=== PATIENT | female | born 1995 | race Caucasian/White ===

== ENCOUNTER 2020-04-24 17:16 | Inpatient (IN) | payer OTHER, BC ==
[2020-04-24] MEDS ORDERED: Ampicillin 2 GM in Sodium Chloride 0.9% 100 ML IV ONE (18:00)
[2020-04-24] MEDS ORDERED: Sodium Chloride 0.9% 10 ML Syringe FLUSH PRN (18:00)
[2020-04-24] MEDS ORDERED: Lactated Ringers 1,000 ML IV SCH (18:00)
[2020-04-24] MEDS ORDERED: Ondansetron 4 MG/2 ML SDV IVPUSH PRN (18:00)
[2020-04-24] MEDS ORDERED: Oxytocin/Lactated Ringers 10 UNIT/1,000 ML BAG IV SCH (18:00)
--- NOTE | 2020-04-24 18:03 | PCM.LDHP ---
L&D History of Present Illness - General Date of Service: 04/24/20 Admit Problem/Dx: Patient Status Order with Admit Dx/Problem 04/24/20 18:00 Patient Status [ADT] Routine Admission Diagnosis/Problem Admission Diagnosis/Problem Normal in third trimester Source of Information: Patient History Limitations: Reports: No Limitations - History of Present Illness Introduction:: Patient is a 24 y/o at 40 0/7 wks who presents in labor. Contractions started around 1100 this AM. Have been getting stronger and longer throughout the day. No LOF yet. Good FM - Related Data Allergies/Adverse Reactions: Allergies Allergy/AdvReac Type Severity Reaction Status Date / Time No Known Allergies Allergy Verified 04/24/20 18:03 Home Medications: Home Meds Levothyroxine [Synthroid] 50 mcg PO ACBREAKFAST 04/24/20 [History] Mv-Mn/Iron/FA/Herbal/Digestive [ One Tablet] 1 tab PO DAILY 04/24/20 [History] Past Medical History [employer] History: Reports: : 1 Para: 0 LMP (Approximate): Endocrine/Metabolic History: Reports: Hypothyroidism - Past Surgical History HEENT Surgical History: Reports: Oral Surgery Social & Family History - Tobacco Use Smoking Status *Q: Never Smoker - Alcohol Use Alcohol Use History: No - Recreational Drug Use Recreational Drug Use: No H&P Review of Systems - Review of Systems: Review Of Systems: See Below General: Reports: No Symptoms Pulmonary: Reports: No Symptoms Cardiovascular: Reports: No Symptoms Gastrointestinal: Reports: Abdominal Pain (contractions) Genitourinary: Reports: No Symptoms Musculoskeletal: Reports: No Symptoms Psychiatric: Reports: No Symptoms Neurological: Reports: No Symptoms L&D Exam - Exam Exam: See Below - OB Specific Contraction Intensity: Moderate Movement: Active Heart Tones: Present Heart Tones per Min: 135 Heart Rate (FHR) Variability: Moderate (6-25 bmp) Presentation: Vertex - Gomes Score Gomes Score Cervix Position: Anterior Gomes Score Consistency: Soft Gomes Score Effacement: 51-70% Gomes Score Dilation: 3-4 cm Gomes Score Infant's Station: -1 ,0 Gomes Score Total: 10 - Exam General: Alert, Oriented, Cooperative Lungs: Clear to Auscultation, Normal Respiratory Effort Cardiovascular: Regular Rate, Regular Rhythm GI/Abdominal Exam: Soft, Non-Tender Genitourinary: Normal external exam Extremities: Normal Inspection Skin: Warm, Dry, Intact - Patient Data Result Diagrams: 04/24/20 18:20 - Problem List (1) 40 weeks gestation of SNOMED Code(s): 33728128 ICD Code: Z3A.40 - 40 WEEKS GESTATION OF Status: Acute Current Visit: Yes (2) GBS (group B Streptococcus carrier), +RV culture, currently SNOMED Code(s): 5516501003830, 733876415, 5981356113541 ICD Code: O99.820 - STREPTOCOCCUS B CARRIER STATE COMPLICATING Status: Acute Current Visit: Yes (3) Rubella non-immune status, antepartum SNOMED Code(s): 866938525 ICD Code: O99.89 - OTH DISEASES AND CONDITIONS COMPL PREG/CHLDBRTH; Z28.3 - UNDERIMMUNIZATION STATUS Status: Acute Current Visit: Yes Problem List Initiated/Reviewed/Updated: Yes Orders Last 24hrs: Active Orders 24 hr Category Date Time Status Patient Status [ADT] Routine ADT 04/24/20 18:00 Ordered Activity as Tolerated [RC] PFP Care 04/24/20 18:00 Ordered Communication Order [RC] ASDIRECTED Care 04/24/20 18:00 Ordered Heart Tones [RC] ASDIRECTED Care 04/24/20 18:00 Ordered Non Stress Test [RC] PER UNIT ROUTINE Care 04/24/20 18:00 Ordered Notify Provider [RC] PFP Care 04/24/20 18:00 Ordered Notify Provider [RC] PRN Care 04/24/20 18:00 Ordered Peripheral IV Care [RC] . DIRECTED Care 04/24/20 18:00 Ordered Vital Signs [RC] PER UNIT ROUTINE Care 04/24/20 18:00 Ordered Regular Diet [DIET] Diet 04/24/20 Dinner Ordered CBC W/O DIFF,HEMOGRAM [HEME] Routine Lab 04/24/20 18:00 Ordered CORONAVIRUS COVID-19 DEJA [MOLEC] Stat Lab 04/24/20 18:02 Ordered RAPID PLASMA REAGIN,RPR [CHEM] Routine Lab 04/24/20 18:00 Ordered TYPE AND SCREEN [BBK] Routine Lab 04/24/20 18:00 Ordered Ampicillin 1 gm Med 04/24/20 18:00 Ordered Sodium Chloride 0.9% [Normal Saline] 100 ml IV Q4H Ampicillin 2 gm Med 04/24/20 18:00 Ordered Sodium Chloride 0.9% [Normal Saline] 100 ml IV ONETIME Lactated Ringers [Ringers, Lactated] 1,000 ml Med 04/24/20 18:00 Ordered IV ASDIRECTED Nalbuphine [Nubain] Med 04/24/20 18:00 Ordered 10 mg IVPUSH Q2H PRN Ondansetron [Zofran] Med 04/24/20 18:00 Ordered 4 mg IVPUSH Q4H PRN Oxytocin/Lactated Ringers [Pitocin in LR 10 Units/1,000 Med 04/24/20 18:00 Ordered ML] 10 unit in 1,000 ml IV .CONTINUOUS Sodium Chloride 0.9% [Saline Flush] Med 04/24/20 18:00 Ordered 10 ml FLUSH ASDIRECTED PRN Electronic Heart Tones Ext w TOCO [WOMSER] Ot 04/24/20 18:00 Ordered Routine Electronic Heart Tones Internal [WOMSER] Per Unit Ot 04/24/20 18:00 Ordered Routine Peripheral IV Insertion Adult [OM.PC] Routine Oth 04/24/20 18:00 Ordered Resuscitation Status Routine Resus Stat 04/24/20 18:00 Ordered Assessment/Plan Comment:: * Labs done * On Ampicillin for GBS positive status * Pain management per patient preference * Anticipate
[2020-04-24] MEDS: Ampicillin 1 GM in Sodium Chloride 0.9% 100 ML IV SCH (22:09)
[2020-04-24] MEDS: Nalbuphine 10 MG/ML Syringe IVPUSH PRN (22:13)
[2020-04-25] MEDS: Nalbuphine 10 MG/ML Syringe IVPUSH PRN (01:48)
[2020-04-25] MEDS: Ampicillin 1 GM in Sodium Chloride 0.9% 100 ML IV SCH (01:49)
[2020-04-25] MEDS ORDERED: Calcium Carbonate 500 MG Tab.Chew PO PRN (02:23)
[2020-04-25] MEDS ORDERED: Lidocaine 1% 50 ML MDV ONE (03:44)
[2020-04-25] MEDS ORDERED: Misoprostol 200 MCG Tab ONE (04:15)
[2020-04-25] MEDS ORDERED: Methylergonovine 0.2 MG/1 ML Amp ONE (04:18)
[2020-04-25] MEDS ORDERED: Misoprostol 200 MCG Tab PO STA (04:24)
[2020-04-25] MEDS ORDERED: Methylergonovine 0.2 MG/1 ML Amp IM STA (04:24)
--- NOTE | 2020-04-25 04:28 | PCM.DEL ---
L & D Note - General Info Date of Service: 04/25/20 - Delivery Note Labor: Spontaneous Delivery Outcome: Livebirth Delivery Method: Spontaneous Vaginal Delivery-Single Delivery Mode: Spontaneous Presentation: Left Occiput Anterior (GIULIANA) Nuchal Cord: None Anesthesia Type: None Anesthetic: Lidocaine (Xylocaine) 1% Plain Amniotic Fluid Description: Clear Episiotomy Type: None Laceration: 2nd Degree Suture type: Vicryl Placenta: Intact, Spontaneous Cord: 3 Vessels Estimated Blood Loss: 500 : Bulb Syringe, Stimulated, Warmed, Aurora Used, Warmer Used Delivery Comments (Free Text/Narrative):: Patient found to be complete and began pushing. With maternal pushing effort head delivered from an GIULIANA presentation. No nuchal cord present. With gentle downward traction the shoulders and body delivered. Infant placed on maternal abdomen. Cord clamped and cut. Cord blood obtained. Placenta allowed time to separate and delivered intact. Patient with a moderate amount of bleeding after placenta delivery. This was managed with 600 mcg of Cytotec and 0.2 mg of IM methergine. Inspection of the perineum showed a 2nd degree laceration which was repaired with a 2-0 vicryl in the typical fashion after infiltration with 1% lidocaine. - General Info Date of Service: 04/25/20 - Patient Data Vitals - Most Recent: Last Vital Signs Temp 36.8 C 04/24/20 18:35 Pulse 81 04/24/20 17:34 Resp BP 124/75 04/24/20 17:34 Pulse Ox Weight - Most Recent: 78.154 kg Lab Results Last 24 Hours: Laboratory Results - last 24 hr 04/24/20 04/24/20 04/24/20 Range/Units 18:20 18:20 18:20 WBC 20.09 H (3.98-10.04) K/mm3 RBC 4.07 (3.98-5.22) M/mm3 Hgb 13.6 (11.2-15.7) gm/dl Hct 39.1 (34.1-44.9) % MCV 96.1 H (79.4-94.8) fl MCH 33.4 H (25.6-32.2) pg MCHC 34.8 (32.2-35.5) g/dl RDW Std Deviation 42.3 (36.4-46.3) fL Plt Count 190 (182-369) K/mm3 MPV 10.5 (9.4-12.3) fl RPR Non-reactive (NONREACTIVE) COVID-19 (DEJA) (NEGATIVE) Blood Type A POSITIVE Gel Antibody Screen Negative 04/24/20 Range/Units 18:25 WBC (3.98-10.04) K/mm3 RBC (3.98-5.22) M/mm3 Hgb (11.2-15.7) gm/dl Hct (34.1-44.9) % MCV (79.4-94.8) fl MCH (25.6-32.2) pg MCHC (32.2-35.5) g/dl RDW Std Deviation (36.4-46.3) fL Plt Count (182-369) K/mm3 MPV (9.4-12.3) fl RPR (NONREACTIVE) COVID-19 (DEJA) Negative (NEGATIVE) Blood Type Gel Antibody Screen Med Orders - Current: Current Medications Calcium Carbonate/Glycine (Tums) 1,000 mg PO Q2H PRN PRN Reason: Indigestion Last Admin: 04/25/20 02:31 Dose: 1,000 mg Documented by: Ampicillin Sodium 1 gm/ Sodium (Chloride) 100 mls @ 200 mls/hr IV Q4H LEODAN Last Admin: 04/25/20 01:49 Dose: 200 mls/hr Documented by: Oxytocin/Lactated Ringer's (Pitocin In Lr 10 Units/1,000 Ml) 10 unit in 1,000 mls @ 500 mls/hr IV .CONTINUOUS LEODAN Last Admin: 04/25/20 04:03 Dose: 500 mls/hr Documented by: Lactated Ringer's (Ringers, Lactated) 1,000 mls @ 100 mls/hr IV ASDIRECTED LEODAN Last Admin: 04/24/20 18:31 Dose: 100 mls/hr Documented by: Nalbuphine HCl (Nubain) 10 mg IVPUSH Q2H PRN PRN Reason: Pain Last Admin: 04/25/20 01:48 Dose: 10 mg Documented by: Ondansetron HCl (Zofran) 4 mg IVPUSH Q4H PRN PRN Reason: Nausea/Vomiting Sodium Chloride (Saline Flush) 10 ml FLUSH ASDIRECTED PRN PRN Reason: Keep Vein Open Discontinued Medications Ampicillin Sodium 2 gm/ Sodium (Chloride) 100 mls @ 200 mls/hr IV ONETIME ONE Stop: 04/24/20 18:29 Last Admin: 04/24/20 18:31 Dose: 200 mls/hr Documented by: Lidocaine HCl (Xylocaine 1%) Confirm Administered Dose 50 ml .ROUTE .STK-MED ONE Stop: 04/25/20 03:45 Methylergonovine Maleate (Methergine) Confirm Administered Dose 0.2 mg .ROUTE .STK-MED ONE Stop: 04/25/20 04:19 Methylergonovine Maleate (Methergine) 0.2 mg IM NOW STA Stop: 04/25/20 04:25 Misoprostol (Cytotec) Confirm Administered Dose 200 mcg .ROUTE .STK-MED ONE Stop: 04/25/20 04:16 Misoprostol (Cytotec) 600 mcg PO NOW STA Stop: 04/25/20 04:25 - Problem List & Annotations (1) 40 weeks gestation of SNOMED Code(s): 49336080 Code(s): Z3A.40 - 40 WEEKS GESTATION OF Status: Acute Current Visit: Yes (2) GBS (group B Streptococcus carrier), +RV culture, currently SNOMED Code(s): 8891951361275, 122817748, 3217002778206 Code(s): O99.820 - STREPTOCOCCUS B CARRIER STATE COMPLICATING Status: Acute Current Visit: Yes (3) Rubella non-immune status, antepartum SNOMED Code(s): 307797923 Code(s): O99.89 - OTH DISEASES AND CONDITIONS COMPL PREG/CHLDBRTH; Z28.3 - UNDERIMMUNIZATION STATUS Status: Acute Current Visit: Yes (4) Vaginal delivery SNOMED Code(s): 171704640 Code(s): O80 - ENCOUNTER FOR FULL-TERM UNCOMPLICATED DELIVERY Status: Acute Current Visit: Yes (5) hemorrhage SNOMED Code(s): 31383653 Code(s): O72.1 - OTHER IMMEDIATE HEMORRHAGE Status: Acute Current Visit: Yes Qualifiers: hemorrhage type: unspecified Qualified Code(s): O72.1 - Other immediate hemorrhage - Problem List Review Problem List Initiated/Reviewed/Updated: Yes - My Orders Last 24 Hours: My Active Orders 04/24/20 Dinner Regular Diet [DIET] 04/24/20 18:00 Patient Status [ADT] Routine Activity as Tolerated [RC] PFP Communication Order [RC] ASDIRECTED Heart Tones [RC] ASDIRECTED Non Stress Test [RC] PER UNIT ROUTINE Notify Provider [RC] PFP Notify Provider [RC] PRN Peripheral IV Care [RC] . DIRECTED Vital Signs [RC] PER UNIT ROUTINE Lactated Ringers [Ringers, Lactated] 1,000 ml IV ASDIRECTED Nalbuphine [Nubain] 10 mg IVPUSH Q2H PRN Ondansetron [Zofran] 4 mg IVPUSH Q4H PRN Oxytocin/Lactated Ringers [Pitocin in LR 10 Units/1,000 ML] 10 unit in 1,000 ml IV .CONTINUOUS Sodium Chloride 0.9% [Saline Flush] 10 ml FLUSH ASDIRECTED PRN Electronic Heart Tones Ext w TOCO [WOMSER] Routine Electronic Heart Tones Internal [WOMSER] Per Unit Routine Peripheral IV Insertion Adult [OM.PC] Routine Resuscitation Status Routine 04/24/20 22:00 Ampicillin 1 gm Sodium Chloride 0.9% [Normal Saline] 100 ml IV Q4H 04/25/20 02:23 Calcium Carbonate [Tums] 1,000 mg PO Q2H PRN 04/25/20 04:25 Patient Status Manage Transfer [TRANSFER] Routine - Assessment Assessment:: PPD#0 - Plan Plan:: * Routine cares * monitor bleeding closely * breast feeding * discharge home in 1-2 days
[2020-04-25] MEDS ORDERED: Acetaminophen 325 MG Tab PO PRN (04:34)
[2020-04-25] MEDS ORDERED: Docusate Sodium 100 MG Cap PO PRN (04:34)
[2020-04-25] MEDS ORDERED: Witch Hazel Medicated Pads 40/Jar TOP PRN (04:34)
[2020-04-25] MEDS ORDERED: Benzocaine/Menthol 20%-0.5% Spray 56 GM Canister TOP PRN (04:34)
[2020-04-25] MEDS: Ibuprofen 600 MG Tab PO PRN ×2 (06:06→16:03)
[2020-04-25] MEDS ORDERED: Measles, Mumps & Rubella Vaccine 0.5 ML SDV SUBCUT ONE (21:02)
[2020-04-26] MEDS ORDERED: Levothyroxine 50 MCG Tab PO SCH (06:00)
[2020-04-26] MEDS: Ibuprofen 600 MG Tab PO PRN (06:53)
--- NOTE | 2020-04-26 06:57 | PCM.PNPP ---
- General Info Date of Service: 04/26/20 Functional Status: Reports: Pain Controlled, Tolerating Diet, Ambulating, Urinating - Review of Systems General: Reports: No Symptoms Pulmonary: Reports: No Symptoms Cardiovascular: Reports: No Symptoms Gastrointestinal: Reports: No Symptoms Genitourinary: Reports: No Symptoms Musculoskeletal: Reports: No Symptoms Neurological: Reports: No Symptoms - Patient Data Vital Signs - Most Recent: Last Vital Signs Temp 36.4 C 04/26/20 03:18 Pulse 85 04/26/20 03:18 Resp 15 04/26/20 03:18 BP 97/57 L 04/26/20 03:18 Pulse Ox 97 04/26/20 03:18 Weight - Most Recent: 78.154 kg I&O - Last 24 Hours: Intake & Output 04/25/20 04/25/20 04/26/20 14:59 22:59 06:59 Intake Total 300 Output Total 1500 Balance -1200 Med Orders - Current: Current Medications Acetaminophen (Tylenol) 650 mg PO Q4H PRN PRN Reason: mild pain or fever Benzocaine/Menthol (Dermoplast Pain Relief [place]) 0 gm TOP ASDIRECTED PRN PRN Reason: Perineal Comfort Measure Last Admin: 04/25/20 06:06 Dose: 1 can Documented by: Docusate Sodium (Colace) 100 mg PO BID PRN PRN Reason: Constipation Ibuprofen (Motrin) 600 mg PO Q6H PRN PRN Reason: Mild pain or fever Last Admin: 04/26/20 06:53 Dose: 600 mg Documented by: Levothyroxine Sodium (Synthroid) 50 mcg PO ACBREAKFAST LEODAN Last Admin: 04/26/20 06:50 Dose: 50 mcg Documented by: Measles/Mumps/Rubella Vaccine Live (M-M-R Ii Vaccine) 0.5 ml SUBCUT .ONCE ONE Stop: 04/26/20 07:01 Wityun Randolph (Tucks) 1 pad TOP ASDIRECTED PRN PRN Reason: Perineal Comfort Measure Last Admin: 04/25/20 06:06 Dose: 1 jar Documented by: Discontinued Medications Calcium Carbonate/Glycine (Tums) 1,000 mg PO Q2H PRN PRN Reason: Indigestion Last Admin: 04/25/20 02:31 Dose: 1,000 mg Documented by: Ampicillin Sodium 2 gm/ Sodium (Chloride) 100 mls @ 200 mls/hr IV ONETIME ONE Stop: 04/24/20 18:29 Last Admin: 04/24/20 18:31 Dose: 200 mls/hr Documented by: Ampicillin Sodium 1 gm/ Sodium (Chloride) 100 mls @ 200 mls/hr IV Q4H LEODAN Last Admin: 04/25/20 01:49 Dose: 200 mls/hr Documented by: Oxytocin/Lactated Ringer's (Pitocin In Lr 10 Units/1,000 Ml) 10 unit in 1,000 mls @ 500 mls/hr IV .CONTINUOUS LEODAN Last Admin: 04/25/20 04:03 Dose: 500 mls/hr Documented by: Lactated Ringer's (Ringers, Lactated) 1,000 mls @ 100 mls/hr IV ASDIRECTED LEODAN Last Admin: 04/24/20 18:31 Dose: 100 mls/hr Documented by: Lidocaine HCl (Xylocaine 1%) Confirm Administered Dose 50 ml .ROUTE .STK-MED ONE Stop: 04/25/20 03:45 Last Admin: 04/25/20 04:15 Dose: 50 ml Documented by: Measles/Mumps/Rubella Vaccine Live (M-M-R Ii Vaccine) 0.5 ml SUBCUT .ONCE ONE Stop: 04/25/20 21:03 Last Admin: 04/25/20 21:17 Dose: 0.5 ml Documented by: Methylergonovine Maleate (Methergine) Confirm Administered Dose 0.2 mg .ROUTE .STK-MED ONE Stop: 04/25/20 04:19 Last Admin: 04/25/20 06:08 Dose: Not Given Documented by: Methylergonovine Maleate (Methergine) 0.2 mg IM NOW STA Stop: 04/25/20 04:25 Last Admin: 04/25/20 04:25 Dose: 0.2 mg Documented by: Misoprostol (Cytotec) Confirm Administered Dose 200 mcg .ROUTE .STK-MED ONE Stop: 04/25/20 04:16 Last Admin: 04/25/20 06:08 Dose: Not Given Documented by: Misoprostol (Cytotec) 600 mcg PO NOW STA Stop: 04/25/20 04:25 Last Admin: 04/25/20 04:20 Dose: 600 mcg Documented by: Nalbuphine HCl (Nubain) 10 mg IVPUSH Q2H PRN PRN Reason: Pain Last Admin: 04/25/20 01:48 Dose: 10 mg Documented by: Ondansetron HCl (Zofran) 4 mg IVPUSH Q4H PRN PRN Reason: Nausea/Vomiting Sodium Chloride (Saline Flush) 10 ml FLUSH ASDIRECTED PRN PRN Reason: Keep Vein Open - Infant Interaction Infant Disposition, : in Room with Family Infant Interaction: Holding Infant Feeding: Attempted ; Nursed Fair/Poor Support Person: - Recovery Exam Fundal Tone: Firm Fundal Level: 2 Fingerbreadths Below Umbilicus Fundal Placement: Midline Lochia Amount: Small, Moderate Lochia Color: Rubra/Red Perineum Description: Other (see below) Other Perinuem Description: 2nd degree with repair Episiotomy/Laceration: Approximated Bladder Status: Voiding Urinary Elimination: Voided - Exam General: Alert, Oriented, Cooperative GI/Abdominal Exam: Soft, Non-Tender Extremities: Normal Inspection Skin: Warm, Dry, Intact - Problem List & Annotations (1) 40 weeks gestation of SNOMED Code(s): 71981673 Code(s): Z3A.40 - 40 WEEKS GESTATION OF Status: Acute Current Visit: Yes (2) GBS (group B Streptococcus carrier), +RV culture, currently SNOMED Code(s): 5579905097096, 803650113, 9019992448521 Code(s): O99.820 - STREPTOCOCCUS B CARRIER STATE COMPLICATING Status: Acute Current Visit: Yes (3) Rubella non-immune status, antepartum SNOMED Code(s): 831070278 Code(s): O99.89 - OTH DISEASES AND CONDITIONS COMPL PREG/CHLDBRTH; Z28.3 - UNDERIMMUNIZATION STATUS Status: Acute Current Visit: Yes (4) Vaginal delivery SNOMED Code(s): 640159188 Code(s): O80 - ENCOUNTER FOR FULL-TERM UNCOMPLICATED DELIVERY Status: Acute Current Visit: Yes (5) hemorrhage SNOMED Code(s): 97206085 Code(s): O72.1 - OTHER IMMEDIATE HEMORRHAGE Status: Acute Current Visit: Yes Qualifiers: hemorrhage type: unspecified Qualified Code(s): O72.1 - Other immediate hemorrhage - Problem List Review Problem List Initiated/Reviewed/Updated: Yes - My Orders Last 24 Hours: My Active Orders 04/25/20 Breakfast Regular Diet [DIET] 04/25/20 21:03 Vaccines to be Administered [RC] PER UNIT ROUTINE 04/26/20 04:34 Heat Therapy [OM.PC] PRN 04/26/20 06:00 Levothyroxine [Synthroid] 50 mcg PO ACBREAKFAST 04/26/20 06:56 Ready for Discharge [RC] PER UNIT ROUTINE 04/26/20 07:00 Measles, Mumps & Rubella [M-M-R II Vaccine] 0.5 ml SUBCUT .ONCE ONE - Assessment Assessment:: PPD#1 - Plan Plan:: * Routine cares * MMR prior to discharge * Home today
[2020-04-26] MEDS ORDERED: Measles, Mumps & Rubella Vaccine 0.5 ML SDV SUBCUT ONE (07:00)
--- NOTE | 2020-04-26 12:47 | PCM.DCSUM1 ---
Discharge Summary - Discharge Data Discharge Date: 04/26/20 Discharge Disposition: Home, Self-Care 01 Condition: Good - Referral to Home Health Primary Care Physician: ARIANE Manrique - Discharge Diagnosis/Problem(s) (1) 40 weeks gestation of SNOMED Code(s): 93785187 ICD Code: Z3A.40 - 40 WEEKS GESTATION OF Status: Acute Current Visit: Yes (2) GBS (group B Streptococcus carrier), +RV culture, currently SNOMED Code(s): 4802699236502, 900372693, 1644795530811 ICD Code: O99.820 - STREPTOCOCCUS B CARRIER STATE COMPLICATING Status: Acute Current Visit: Yes (3) Rubella non-immune status, antepartum SNOMED Code(s): 994946467 ICD Code: O99.89 - OTH DISEASES AND CONDITIONS COMPL PREG/CHLDBRTH; Z28.3 - UNDERIMMUNIZATION STATUS Status: Acute Current Visit: Yes (4) Vaginal delivery SNOMED Code(s): 347237035 ICD Code: O80 - ENCOUNTER FOR FULL-TERM UNCOMPLICATED DELIVERY Status: Acute Current Visit: Yes (5) hemorrhage SNOMED Code(s): 25989973 ICD Code: O72.1 - OTHER IMMEDIATE HEMORRHAGE Status: Acute Current Visit: Yes Qualifiers: hemorrhage type: unspecified Qualified Code(s): O72.1 - Other immediate hemorrhage - Patient Summary/Data Complications: None Consults: None Recommended Follow-up Testing/Procedures: Follow up in 3 weeks for check Hospital Course: 24 y/o at 40 0/7 wks presented in labor. Made good change to complete dilation and underwent . Delivery notable for 500 c PPH managed with cytotec and Methergine. See delivery note. did well and was discharged home on PPD#1 - Patient Instructions Diet: Regular Diet as Tolerated Activity: As Tolerated Activity, Other: Pelvic rest for 6 weeks Driving: May Drive Today Showering/Bathing: May Shower Showering/Bathing, Other: May Bathe Notify Provider of: Fever, Increased Pain, Swelling and Redness, Drainage, Nausea and/or Vomiting - Discharge Plan *PRESCRIPTION DRUG MONITORING PROGRAM REVIEWED*: No *COPY OF PRESCRIPTION DRUG MONITORING REPORT IN PATIENT HANANE: No Home Medications: Home Meds Levothyroxine [Synthroid] 50 mcg PO ACBREAKFAST 04/24/20 [History] Mv-Mn/Iron/FA/Herbal/Digestive [ One Tablet] 1 tab PO DAILY 04/24/20 [History] Docusate Sodium [Colace] 100 mg PO BID PRN cap 04/26/20 [Rx] Ibuprofen [Motrin] 600 mg PO Q6H PRN tablet 04/26/20 [Rx] Patient Handouts: Care After Vaginal Delivery Referrals: Shruti Jacobs MD [Physician] - (3 weeks for check) - Discharge Summary/Plan Comment DC Time >30 min.: No - Patient Data Vitals - Most Recent: Last Vital Signs Temp 37.2 C 04/26/20 07:47 Pulse 81 04/26/20 07:47 Resp 16 04/26/20 07:47 BP 107/58 L 04/26/20 07:47 Pulse Ox 99 04/26/20 07:47 Weight - Most Recent: 78.154 kg I&O - Last 24 hours: Intake & Output 04/25/20 04/26/20 04/26/20 22:59 06:59 14:59 Intake Total 300 300 Balance 300 300 Med Orders - Current: Current Medications Acetaminophen (Tylenol) 650 mg PO Q4H PRN PRN Reason: mild pain or fever Benzocaine/Menthol (Dermoplast Pain Relief [place]) 0 gm TOP ASDIRECTED PRN PRN Reason: Perineal Comfort Measure Last Admin: 04/25/20 06:06 Dose: 1 can Documented by: Docusate Sodium (Colace) 100 mg PO BID PRN PRN Reason: Constipation Ibuprofen (Motrin) 600 mg PO Q6H PRN PRN Reason: Mild pain or fever Last Admin: 04/26/20 06:53 Dose: 600 mg Documented by: Levothyroxine Sodium (Synthroid) 50 mcg PO ACBREAKFAST LEODAN Last Admin: 04/26/20 06:50 Dose: 50 mcg Documented by: Sagrario Randolph (Patric) 1 pad TOP ASDIRECTED PRN PRN Reason: Perineal Comfort Measure Last Admin: 04/25/20 06:06 Dose: 1 jar Documented by: Discontinued Medications Calcium Carbonate/Glycine (Tums) 1,000 mg PO Q2H PRN PRN Reason: Indigestion Last Admin: 04/25/20 02:31 Dose: 1,000 mg Documented by: Ampicillin Sodium 2 gm/ Sodium (Chloride) 100 mls @ 200 mls/hr IV ONETIME ONE Stop: 04/24/20 18:29 Last Admin: 04/24/20 18:31 Dose: 200 mls/hr Documented by: Ampicillin Sodium 1 gm/ Sodium (Chloride) 100 mls @ 200 mls/hr IV Q4H [facility] Last Admin: 04/25/20 01:49 Dose: 200 mls/hr Documented by: Oxytocin/Lactated Ringer's (Pitocin In Lr 10 Units/1,000 Ml) 10 unit in 1,000 mls @ 500 mls/hr IV .CONTINUOUS LEODAN Last Admin: 04/25/20 04:03 Dose: 500 mls/hr Documented by: Lactated Ringer's (Ringers, Lactated) 1,000 mls @ 100 mls/hr IV ASDIRECTED [facility] Last Admin: 04/24/20 18:31 Dose: 100 mls/hr Documented by: Lidocaine HCl (Xylocaine 1%) Confirm Administered Dose 50 ml .ROUTE .STK-MED ONE Stop: 04/25/20 03:45 Last Admin: 04/25/20 04:15 Dose: 50 ml Documented by: Measles/Mumps/Rubella Vaccine Live (M-M-R Ii Vaccine) 0.5 ml SUBCUT .ONCE ONE Stop: 04/26/20 07:01 Measles/Mumps/Rubella Vaccine Live (M-M-R Ii Vaccine) 0.5 ml SUBCUT .ONCE ONE Stop: 04/25/20 21:03 Last Admin: 04/25/20 21:17 Dose: 0.5 ml Documented by: Methylergonovine Maleate (Methergine) Confirm Administered Dose 0.2 mg .ROUTE .STK-MED ONE Stop: 04/25/20 04:19 Last Admin: 04/25/20 06:08 Dose: Not Given Documented by: Methylergonovine Maleate (Methergine) 0.2 mg IM NOW STA Stop: 04/25/20 04:25 Last Admin: 04/25/20 04:25 Dose: 0.2 mg Documented by: Misoprostol (Cytotec) Confirm Administered Dose 200 mcg .ROUTE .STK-MED ONE Stop: 04/25/20 04:16 Last Admin: 04/25/20 06:08 Dose: Not Given Documented by: Misoprostol (Cytotec) 600 mcg PO NOW STA Stop: 04/25/20 04:25 Last Admin: 04/25/20 04:20 Dose: 600 mcg Documented by: Nalbuphine HCl (Nubain) 10 mg IVPUSH Q2H PRN PRN Reason: Pain Last Admin: 04/25/20 01:48 Dose: 10 mg Documented by: Ondansetron HCl (Zofran) 4 mg IVPUSH Q4H PRN PRN Reason: Nausea/Vomiting Sodium Chloride (Saline Flush) 10 ml FLUSH ASDIRECTED PRN PRN Reason: Keep Vein Open
== END 2020-04-26 14:10 | disposition home or self-care (01) | DRG 807 ==
LOC: JD.OBCHECK 17:16 → JD.OB 17:21 → JD.OBCHECK 17:59 → JD.OB 18:00 → OBSVTOIN 04-25 03:55
PROVIDERS: ADMIT Obstetrics & Gynecology; ATTEND Obstetrics & Gynecology
PROC: 10E0XZZ Delivery of Products of Conception, External Approach (ICD-10-PCS; principal; 2020-04-25)
PROC: 0KQM0ZZ Repair Perineum Muscle, Open Approach (ICD-10-PCS; 2020-04-25)
PROC: 3E0234Z Introduction of Serum, Toxoid and Vaccine into Muscle, Percutaneous Approach (ICD-10-PCS; 2020-04-25)
DX: O99.824 Streptococcus B carrier state complicating childbirth (principal); Z37.0 Single live birth; O99.284 Endocrine, nutritional and metabolic diseases complicating childbirth; Z3A.40 40 weeks gestation of pregnancy; O72.1 Other immediate postpartum hemorrhage; O70.1 Second degree perineal laceration during delivery; Z20.828 Contact with and (suspected) exposure to other viral communicable diseases; Z23 Encounter for immunization; E03.9 Hypothyroidism, unspecified
CPT/HCPCS: 36415; 59025; 59409; 85027; 86592; 86850; 86900; 86901; 90471; 90707; A9270-GY; J0290; J2001; J2210; J2300; J2590; J7050; J7120; U0002